=== PATIENT | female | born 2005 | race Caucasian/White ===

== ENCOUNTER 2025-01-28 08:10 | Emergency (ER) | payer OTHER, SELFPAY ==
--- NOTE | ~2025-01-28 | XR_ITS ---
EXAMINATION: XR foot LT min 3V DATE: 01/28/2025 08:37 INDICATION: Left foot crush injury TECHNIQUE: Dorsoplantar, two oblique and lateral views of the left foot were obtained. COMPARISON: None. FINDINGS: Alignment is normal. No fracture. Joint spaces are normal. Cortically based sclerotic lesion at the lateral aspect of the distal left tibial metaphysis without periosteal reaction, evident lytic component or other aggressive features most likely representing an involuting fibrous cortical defect. Soft tissues are unremarkable. IMPRESSION: 1. Negative left foot radiographs. Reviewed, dictated and finalized at location A.
[2025-01-28 08:24] VITALS: BP 139/76; PULSE 84; RESP 16; TEMP 36.8; O2SAT 100
--- NOTE | 2025-01-28 08:30 | ED.LOWEXIN ---
HPI - Extremity Injury (Lower) General Chief Complaint: Extremity Injury, Lower Stated Complaint: L Foot Pain Time Seen by Provider: 01/28/25 08:30 Source: patient and RN notes reviewed Mode of arrival: ambulatory Limitations: no limitations History of Present Illness HPI Narrative: 19-year-old female Presents Express Care complaining of injury to left foot. Patient reports dropping something on her left foot at work last night. Patient denies any numbness, tingling or any other injuries. Patient reports pain, bruising, swelling to her left foot. Patient reports pain with bearing weight. Patient has not tried any [id number] to help with symptoms. Patient denies any significant past medical history. Related Data Home Medications ?Medication ?Instructions ?Recorded ?Confirmed ?Last Taken ?Type No Home Medications 01/28/25 01/28/25 Unknown History Allergies Allergy/AdvReac Type Severity Reaction Status Date / Time tylenol 3 Allergy Unknown Unknown Uncoded 01/28/25 08:36 Review of Systems Review of Systems: CONSTITUTIONAL: Denies fever, chills, or sweats. EYES: Denies visual changes, redness, or discharge. ENT: Denies rhinorrhea, congestion, sore throat, or otalgia. CARDIOVASCULAR: Denies chest pain, palpitations, or edema. RESPIRATORY: Denies cough or dyspnea. GASTROINTESTINAL: Denies abdominal pain, nausea, vomiting, or diarrhea. GENITOURINARY: Denies dysuria or hematuria. SKIN: Denies rash, wound, or itching. MUSCULOSKELETAL: Denies back pain, joint pain, or myalgia. Positive for left foot injury and swelling NEUROLOGIC: Denies headache, numbness, or weakness. PSYCHIATRIC: Denies anxiety or depression. All other systems reviewed are negative, except as documented in HPI. PMFSH Comments At the time of my signature, I reviewed and agree with the nursing past medical, surgical, social, and family history. There is no relevant family history pertinent to the patient complaint. Exam Narrative: GENERAL: This is a well-nourished, well-developed adult, in no apparent distress. They are non ill-appearing, nontoxic appearing. HEAD: normocephalic, atraumatic. EYES: Sclera clear/white. Vision is grossly intact. Conjunctiva normal. Extraocular movement intact. EARS: External ears normal Hearing grossly intact. NOSE: External nose normal THROAT: Mucous membranes moist NECK: Neck supple CARDIOVASCULAR: Regular rate and rhythm RESPIRATORY: Respiratory rate normal, respiratory effort nonlabored, no respiratory distress NEURO: awake, alert, and oriented to person, place and time. There were no obvious focal neurologic abnormalities. EXTREMITIES: Left foot: No obvious deformity, injury, swelling, bruising, redness. Normal range of motion. No bony tenderness. Capillary refill less than 3 seconds. Left pedal Pulse 2 +palpable. Normal sensation. Neurovascular status intact distal injury. Patient able to wiggle her toes. BACK: Nontender without deformity. Course Course Emergency Course: Portions of this record may have been created with voice recognition software Level of Care: Express Care Visit Vital Signs Vital signs: Vital Signs Temperature 98.3 F 01/28/25 08:24 Pulse Rate 84 01/28/25 08:24 Respiratory Rate 16 01/28/25 08:24 Blood Pressure 139/76 01/28/25 08:24 Pulse Oximetry 100 01/28/25 08:24 Oxygen Delivery Room Air 01/28/25 08:24 Temperature 98.3 F 01/28/25 08:24 Pulse Rate 84 01/28/25 08:24 Respiratory Rate 16 01/28/25 08:24 Blood Pressure 139/76 01/28/25 08:24 Pulse Oximetry 100 01/28/25 08:24 Oxygen Delivery Room Air 01/28/25 08:24 Reviewed MDM - Extremity Injury (Lower) MDM Narrative Medical decision making narrative: X-ray left foot negative for any fractures or acute findings. Incidental finding metaphysis of tibia bone of a sclerotic lesion likely benign fibrous cortical defect. Discussed this finding with patient, advised follow-up with PCP. Patient given Gerhard wrap for compression. Discussed physical exam findings. Advised supportive measures and signs/symptoms to go to the ER. Pt is appropriate for outpt treatment and f/u. Differential Diagnosis Differential diagnosis: Likely other (Crush injury, foot contusion, foot fracture, foot sprain, toe fracture, toe sprain) Imaging Data Radiologist's impression: ITS Impressions Foot X-Ray 01/28/25 08:55 IMPRESSION: 1. Negative left foot radiographs. Critical Care Time Critical Care Time Critical Care Time: No Discharge Plan Discharge Clinical Impression: Contusion of foot, left Patient Disposition: Home Condition: Stable Instructions: Foot Contusion (ED) Additional Instructions: The x-ray of your left foot was negative for any fractures or acute findings. Please follow-up with your PCP about the benign lesion on your x-ray. Rest and elevate the leg; bear weight as tolerated Apply ice 15-20 minute intervals several times a day for 48 hours then apply heat 15-20 minutes few times a day. Keep it wrapped with GERHARD You may take ibuprofen 600 mg to 800 mg every 6-8 hours. Do not exceed more than 800 mg of ibuprofen per dose. Do not exceed more than 3200 mg ibuprofen in a day. You may take up to 1000 mg Tylenol every 6-8 hours. Do not exceed 1000 mg per dose, do exceed more than 4000 mg of Tylenol in a day. Follow up with your primary care provider or orthopedist in 1-2 weeks especially if pain persist after 10 days. Patient Language: Tunisian Prescriptions: No Action No Home Medications Follow-up/Referrals: Silvio Willingham MD [Physician, Family Practice] Abebe Blank MD [Physician, Orthopedics] Stand Alone Forms: Work/School Release IP Time of Disposition: 09:10
== END 2025-01-28 09:15 | disposition home or self-care (01) ==
DX: S90.32XA Contusion of left foot, initial encounter (principal); W20.8XXA Other cause of strike by thrown, projected or falling object, initial encounter
CPT/HCPCS: 73630; 99203; G0463